=== PATIENT | female | born 1955 | race Caucasian/White ===

== ENCOUNTER 2019-12-29 11:10 | Outpatient (CLI) | payer BC ==
--- NOTE | 2019-12-29 11:51 | RAD ---
LEFT KNEE 4 VIEWS: Date: 12/29/2019 HISTORY: Left knee osteoarthritis, left knee pain. FINDINGS: There are degenerative changes in the left knee manifested by osteophyte formation and joint space na rrowing. No fracture, dislocation, or bony destruction is seen. IMPRESSION: Left knee osteoarthritis. POS: AH
== END 2019-12-29 11:11 | disposition home or self-care (01) ==
LOC: NAV RAD 11:10
PROVIDERS: ATTEND Family Medicine
DX: M17.0 Bilateral primary osteoarthritis of knee (principal)